=== PATIENT | male | born 1985 | race Caucasian/White ===

== ENCOUNTER 2016-12-25 13:27 | Emergency (ER) | payer OTHER ==
[~2016-12-25] VITALS: Ht 182.9 cm; Wt 150.0 kg
[~2016-12-25 13:27] MED LIST: AMOXICILLIN 50500 MG PO; ANTIVERT 25MG25 MG PO; ASPIRIN 32325 MG/TAB PO; ATIVAN 1MG T1 MG/TAB PO; CARDIZEM120 MG PO; COZAAR 50MG50 MG/TAB PO; FLONASE NASAL S16 GM NS; MEXILETINE250 MG PO; NORCO 325 MG-51 TAB PO; PERCOCET 325 MG1 TA2 PO; PREDNISONE20 MG PO; PRINIVIL10 MG PO; SINGULAIR10 MG PO; SYNTHROID0.05 MG/TA PO; ULTRAM 50MG TAB50 MG PO; ZOLOFT 50MG50 MG PO
[2016-12-25 13:31] VITALS: TEMP 97.7
[2016-12-25 14:43] LABS: BASO % 0.3 % (0.0-2.0); EOS # 0.3 (0.0-0.7); EOS % 3.1 % (0-4.0); GRAN # 6.4 (1.4-6.5); GRAN % 62.5 % (42.2-75.2); HEMATOCRIT 42.8 % (42.0-52.0); HEMOGLOBIN 14.6 g/dl (13.5-18.0); LYMPH # 2.6 (1.2-3.4); MEAN CELL VOLUME 91 fl (80.0-100.0); MEAN CORPUSCULAR HEMOGLOBIN 31 pg (27.0-31.0); MEAN CORPUSCULAR HGB CONC 34 g/dl (33.0-37.0); MEAN PLATELET VOLUME 12.2 fl (7.4-10.4); MONO # 0.8 (0.1-0.6); MONO % 7.8 % (1.7-9.3); PLATELET COUNT 198 K/mm3 (130-400); RED BLOOD COUNT 4.73 M/mm3 (4.20-5.60); WHITE BLOOD COUNT 10.2 K/mm3 (4.8-10.8)
[2016-12-25 14:50] LABS: ADJUSTED CALCIUM 8.5 mg/dL (8.4-10.2); ALANINE AMINOTRANSFERASE 61 U/L (21-72); ALBUMIN 4.8 gm/dL (3.5-5.0); ALKALINE PHOSPHATASE 59 U/L (50-136); ANION GAP 12 mmol/L (7-16); BILIRUBIN,TOTAL 0.8 mg/dL (0.0-1.0); BLOOD UREA NITROGEN 17 mg/dL (9-20); CALCIUM 9.1 mg/dL (8.4-10.2); CARBON DIOXIDE 23 mmol/L (22-30); CHLORIDE 103 mmol/L (98-107); CREATININE, serum 0.94 mg/dL (0.66-1.25); GLUCOSE 91 mg/dL (74-106); POTASSIUM 4.1 mmol/L (3.4-5.0); SODIUM 139 mmol/L (137-145); TOTAL PROTEIN 7.7 gm/dL (6.4-8.2)
[2016-12-25 15:03] LABS: ACETAMINOPHEN < 10 ug/mL (10-30); ALCOHOL(ethanol),MEDICAL < 10 mg/dL; SALICYLATE < 1.0 mg/dL
[2016-12-25 15:19] LABS: AMPHETAMINE URINE NEGATIVE; BARBITURATES URINE NEGATIVE; BENZODIAZEPINES URINE POSITIVE; BUPRENORPHINE URINE NEGATIVE; METHADONE URINE NEGATIVE; OPIATES URINE NEGATIVE; OXYCODONE URINE NEGATIVE; PHENCYCLIDINE URINE NEGATIVE; PROPOXYPHENE URINE NEGATIVE; THC CANNABINOIDS URINE NEGATIVE; TRICYCLIC ANTIDEPRESS URINE NEGATIVE
[2016-12-25] MEDS ORDERED: TOPROL XL 50MG50 MG PO (18:20)
[2016-12-25] MEDS ORDERED: CYMBALTA 60MG60 MG PO (18:21)
[2016-12-25] MEDS ORDERED: ASPIRIN 32325 MG/TAB PO (18:21)
[2016-12-25] MEDS ORDERED: LASIX 40MG TABL40 MG PO (18:22)
[2016-12-25] MEDS ORDERED: LASIX 20MG TABL20 MG PO (18:22)
[2016-12-25] MEDS ORDERED: XARELTO20 MG PO (18:22)
[2016-12-25] MEDS ORDERED: ALDACTONE 25MG25 M1 PO (18:23)
[2016-12-25] MEDS ORDERED: BETAPACE 120MG120 MG PO (18:23)
[2016-12-25] MEDS ORDERED: COZAAR100 MG PO (18:23)
[2016-12-25] MEDS ORDERED: APRESOLINE 25MG25 MG PO (18:24)
[2016-12-25 20:32] VITALS: BP 118/78; PULSE 58
== END 2016-12-25 21:45 | disposition short-term general hospital (02) ==
LOC: COL.ER 13:27
PROVIDERS: Emergency Medicine
DX: F32.9 Major depressive disorder, single episode, unspecified (principal); R45.851 Suicidal ideations; F41.9 Anxiety disorder, unspecified; I50.9 Heart failure, unspecified; I42.9 Cardiomyopathy, unspecified

== ENCOUNTER 2021-01-17 08:47 | Emergency (ER) | payer BC, MEDICARE, MEDICAID ==
[~2021-01-17] VITALS: Ht 182.9 cm; Wt 137.3 kg
[~2021-01-17 08:47] MED LIST changes: +ALDACTONE 25MG25 M1 PO; +APRESOLINE 25MG25 MG PO; +BETAPACE 120MG120 MG PO; +COZAAR100 MG PO; +CYMBALTA 60MG60 MG PO; +LASIX 20MG TABL20 MG PO; +LASIX 40MG TABL40 MG PO; +TOPROL XL 50MG50 MG PO; +XARELTO20 MG PO
[2021-01-17 08:56] VITALS: BP 125/83
[2021-01-17 10:04] LABS: BASO # 0.1 K/mm3 (0.0-0.2); BASO % 0.4 % (0.0-2.0); EOS # 0.5 K/mm3 (0.0-0.7); EOS % 3.2 % (0-4.0); GRAN # 9.6 K/mm3 (1.4-6.5); GRAN % 65.5 % (42.2-75.2); HEMATOCRIT 42.4 % (42.0-52.0); HEMOGLOBIN 14.4 g/dl (13.5-18.0); LYMPH # 3.3 K/mm3 (1.2-3.4); LYMPH % 22.5 % (20.0-51.0); MEAN CELL VOLUME 86 fl (80.0-100.0); MEAN CORPUSCULAR HEMOGLOBIN 29 pg (27.0-31.0); MEAN CORPUSCULAR HGB CONC 34 g/dl (33.0-37.0); MONO # 1.1 K/mm3 (0.1-0.6); MONO % 7.7 % (1.7-9.3); PLATELET COUNT 153 K/mm3 (130-400); RED BLOOD COUNT 4.93 M/mm3 (4.20-5.60); REDCELL DISTRIBUTION WIDTH-CV 13.7 % (11.5-14.5)
[2021-01-17 11:24] VITALS: PULSE 57
== END 2021-01-17 11:24 | disposition home or self-care (01) ==
LOC: COL.ER 08:47
PROVIDERS: Emergency Medicine
DX: T82.524A Displacement of infusion catheter, initial encounter (principal); I50.9 Heart failure, unspecified; I11.0 Hypertensive heart disease with heart failure; E66.01 Morbid (severe) obesity due to excess calories; I48.0 Paroxysmal atrial fibrillation; Z68.41 Body mass index [BMI] 40.0-44.9, adult; Z79.01 Long term (current) use of anticoagulants; Z79.82 Long term (current) use of aspirin; Z79.899 Other long term (current) drug therapy; X58.XXXA Exposure to other specified factors, initial encounter